=== PATIENT | male | born 1970 | race Caucasian/White ===

== ENCOUNTER 2016-07-15 20:55 | Emergency (ER) | payer BC ==
[2016-07-15 21:06] VITALS: RESP 16; TEMP 100
[2016-07-15] MEDS ORDERED: ASPIRIN 81 MG CHEW PO STA (21:07)
--- NOTE | 2016-07-15 21:20 | ED ---
Chest Pain HPI - General Chief Complaint: Chest Pain Stated Complaint: Chest Pain Time Seen by Provider: 07/15/16 21:01 Source: patient Mode of arrival: ambulatory Limitations: no limitations - History of Present Illness Initial Comments: This patient is a 46-year-old man who presents to be evaluated for a sensation of chest tightness. The patient states that things been going on for nearly 1 week, though it they are worse tonight. He indicates that the chest tightness is all across his chest and then he also feels it in his upper back. Patient states that he did see his "asthma doctor" at the end of last week and was told that his lungs seemed clear. The patient has also had a nonproductive cough associated. He has not had diaphoresis, nausea or vomiting, palpitations, lightheadedness or syncope. Patient states that the symptoms are currently moderate, constant, and he has not noted any worsening or relieving factors. MD Complaint: chest pain Onset/Timin -: week(s) Onset: during rest Pain Location: left chest, right chest Pain Radiation: back Severity: moderate Quality: tightness Consistency: constant Improves With: nothing Worsens With: nothing Other Symptoms: cough Treatments Prior to Arrival: none - Related Data Home Medications Medication Instructions Recorded Confirmed Albuterol Sulfate [Proair Hfa] 1 - 2 puff INHALATION RT-Q6H PRN 11/15/15 Budesonide-Formot 160-4.5 Mcg 2 puff INHALATION RT-BID 11/15/15 11/17/15 [Symbicort 160-4.5 Mcg Inhaler] Cholecalciferol [Vitamin D3] 2,000 unit PO DAILY 11/15/15 11/17/15 Diphenoxylate HCl/Atropine 1 tab PO QID PRN 11/15/15 11/17/15 [Lomotil] Fexofenadine HCl [Andreia Allergy] 180 mg PO DAILY PRN 11/15/15 11/17/15 Lansoprazole [Prevacid] 30 mg PO DAILY 11/15/15 11/17/15 Montelukast [Singulair] 10 mg PO HS 11/15/15 11/17/15 Dicyclomine [Bentyl] 20 mg PO QID PRN 11/17/15 11/17/15 Previous Rx's Medication Instructions Recorded Cephalexin [Keflex] 500 mg PO Q12HR 10 Days 11/17/15 Allergies Allergy/AdvReac Type Severity Reaction Status Date / Time Iodinated Contrast Media - Allergy Rash/Hives Verified 07/15/16 21:06 Oral and [Iodinated Contrast Media - IV Dye] meperidine HCl [From Demerol] Allergy Swelling Verified 07/15/16 21:06 propoxyphene napsylate Allergy Swelling Verified 07/15/16 21:06 [From Darvocet-N 100] Review of Systems ROS Statement: Those systems with pertinent positive or pertinent negative responses have been documented in the HPI. ROS Other: All systems not noted in ROS Statement are negative. Constitutional: Denies: fever, chills, weakness Respiratory: Reports: as per HPI, cough. Denies: dyspnea, wheezes, hemoptysis Cardiovascular: Reports: as per HPI, chest pain. Denies: palpitations, orthopnea, edema, syncope Gastrointestinal: Denies: abdominal pain, nausea, vomiting Genitourinary: Denies: dysuria, hematuria Musculoskeletal: Reports: as per HPI, back pain Skin: Denies: rash Neurological: Denies: headache, weakness, numbness EKG Findings - EKG Results: EKG: interpreted by OCTAVIA HAIR, sinus rhythm (With PVC. Rate approximate 77 bpm) , normal axis, normal QRS, normal ST/T Past Medical History Past Medical History: Asthma, Hypertension History of Any Multi-Drug Resistant Organisms: None Reported Past Surgical History: Hernia Repair Additional Past Surgical History / Comment(s): splenectomy Past Psychological History: No Psychological Hx Reported Smoking Status: Former smoker Past Alcohol Use History: Occasional Past Drug Use History: None Reported General Exam Limitations: no limitations General appearance: alert, in no apparent distress Head exam: Present: atraumatic, normocephalic Eye exam: Present: normal appearance. Absent: scleral icterus, conjunctival injection ENT exam: Present: normal oropharynx Neck exam: Present: normal inspection, full ROM Respiratory exam: Present: normal lung sounds bilaterally. Absent: respiratory distress, wheezes, rales, rhonchi, stridor Cardiovascular Exam: Present: regular rate, normal rhythm, normal heart sounds. Absent: systolic murmur, diastolic murmur, rubs, gallop GI/Abdominal exam: Present: soft. Absent: distended, tenderness, guarding, rebound, rigid, mass, pulsatile mass, hernia Extremities exam: Present: normal inspection, normal capillary refill. Absent: pedal edema, calf tenderness Back exam: Present: normal inspection. Absent: CVA tenderness (R), CVA tenderness (L) Neurological exam: Present: alert Skin exam: Present: warm, dry, intact, normal color. Absent: rash Course Vital Signs 07/15/16 07/15/16 07/15/16 21:00 22:02 22:49 Temperature 100.0 F H Pulse Rate 74 78 69 Respiratory 16 16 Rate Blood Pressure 157/90 137/78 O2 Sat by Pulse 94 L 96 Oximetry 07/15/16 22:58 Temperature Pulse Rate 75 Respiratory Rate Blood Pressure O2 Sat by Pulse Oximetry Disposition Clinical Impression: Chest pain Disposition: HOME SELF-CARE Condition: Fair Instructions: Chest Pain (ED) Additional Instructions: As we discussed, follow-up with the [facility] or with her primary physician to have a stress test arranged in the very near future. Should you have any of the symptoms we discussed or if there is worsening in anyway return here immediately and we can arrange to have this done as an inpatient. Referrals: Juliano Canales DO [Primary Care Provider] - 1-2 days Rajni Duarte MD [STAFF PHYSICIAN] - 1-2 days
[2016-07-15 21:38] LABS: Basophils # (A) 0.1 k/uL (0-0.2); Basophils % (A) 1 %; CH 32.2; CHCM 33.1; Eosinophils # (A) 0.3 k/uL (0-0.7); Eosinophils % (A) 2 %; HCT 47.9 % (39.0-53.0); HDW 2.42; HGB 16.1 gm/dL (13.0-17.5); Luc # (Auto) 0.32; Luc % (Auto) 2; Lymphocytes # (A) 3.5 k/uL (1.0-4.8); Lymphocytes % (A) 25 %; MCHC 33.7 g/dL (31.0-37.0); MCV 97.9 fL (80.0-100.0); Mean Platelet Volume 7.3; Monocytes # (A) 0.8 k/uL (0-1.0); Monocytes % (A) 6 %; Neutrophils # (A) 8.7 k/uL (1.3-7.7); Neutrophils % (A) 63 %; RDW 13.2 % (11.5-15.5); WBC 13.8 k/uL (3.8-10.6); WBC (Perox) 13.13
[2016-07-15 21:54] LABS: ALT 38 U/L (21-72); AST 26 U/L (17-59); Alkaline Phosphatase 69 U/L (38-126); Amylase 54 U/L (30-110); Anion Gap 12 mmol/L; Blood Urea Nitrogen 21 mg/dL (9-20); Calcium 9.5 mg/dL (8.4-10.2); Carbon Dioxide 28 mmol/L (22-30); Chloride 101 mmol/L (98-107); Glucose 99 mg/dL (74-99); Non-African American GFR(MDRD) >60 (>60 ml/min/1.73 sqM); Potassium 4.3 mmol/L (3.5-5.1); Sodium 141 mmol/L (137-145); Total Bilirubin 0.4 mg/dL (0.2-1.3); Total Protein 7.2 g/dL (6.3-8.2)
[2016-07-15 21:55] LABS: Creatine Kinase 84 U/L (55-170)
[2016-07-15 21:56] LABS: Prothrombin Time 9.8 sec (9.0-12.0)
--- NOTE | 2016-07-15 21:59 | XR ---
EXAMINATION TYPE: XR chest 1V portable DATE OF EXAM: 07/15/2016 9:31 PM COMPARISON: 07/12/2016 INDICATION: Chest pain history of asthma TECHNIQUE: Single frontal view of the chest is obtained. FINDINGS: The heart size is normal. The pulmonary vasculature is normal. The lungs are clear. IMPRESSION: 1. No acute pulmonary process.
[2016-07-15 22:06] LABS: Creatine Kinase MB 0.7 ng/mL (0.0-2.4); Troponin I <0.012 ng/mL (0.000-0.034)
[2016-07-15] MEDS ORDERED: ALBUTEROL NEBULIZED 2.5 MG/3 ML INHALATION STA (22:30)
[2016-07-15 23:15] VITALS: BP 155/91; PULSE 63
== END 2016-07-15 23:14 | disposition home or self-care (01) ==
LOC: EC 20:55
DX: R07.89 Other chest pain (principal); R05 Cough; J45.909 Unspecified asthma, uncomplicated; I10 Essential (primary) hypertension; Z87.891 Personal history of nicotine dependence; Z79.51 Long term (current) use of inhaled steroids; Z79.899 Other long term (current) drug therapy; Z91.041 Radiographic dye allergy status; Z88.5 Allergy status to narcotic agent
CPT/HCPCS: 36415; 71010; 80053; 82150; 82550; 82553; 83690; 83735; 84484; 85025; 85379; 85610; 85730; 93005; 94640; 99285

== ENCOUNTER → 2019-06-01 | Day surgery (SDC) | payer BC ==
[2019-05-29 09:49] VITALS: BMI 33.5
[~2019-06-01] MED LIST: LACTATED RINGERS 1,000 ML IV SCH; LIDOCAINE 1% 20 ML VIAL (10MG/ML) FOR IV START INTRADERMA PRN; PROPOFOL 10 MG/ML 20 ML VIAL IV ONE
[2019-06-01 08:32] VITALS: RESP 16; TEMP 98.1
--- NOTE | 2019-06-01 09:11 | P.PCN ---
Date of Procedure: 06/01/19 Description of Procedure: BRIEF HISTORY: Patient is a 48-year-old male who presents for outpatient colonoscopy for family history of colon cancer. He reports colon cancer in both his father and maternal grandmother. Denies any change in bowel habits, blood per rectum or abdominal pain. PROCEDURE PERFORMED: Colonoscopy with polypectomy. PREOPERATIVE DIAGNOSIS: Family history of colon cancer, last colonoscopy 2011. ESTIMATED BLOOD LOSS: Minimal. IV sedation per Anesthesia. PROCEDURE: After informed consent was obtained, the patient, was brought into the endoscopy unit. IV sedation was administered by Anesthesia under continuous monitoring. Digital rectal examination was normal. Initially the Olympus CF-190 flexible video colonoscope was then inserted in the rectum, gradually advanced into the cecum without any difficulty. Careful examination was performed as the scope was gradually being withdrawn. Ileocecal valve and the appendiceal orifice were visualized and appeared normal. Prep was excellent. Mucosa of the cecum, ascending colon, transverse colon, descending colon, sigmoid colon, and rectum appeared normal, with a few scattered diverticula noted in the sigmoid. 2 diminutive polyps measuring 2 mm and 1 mm in size removed from the rectum with cold forcep polypectomy. Retroflexion was performed in the rectum and no lesions were seen. The patient tolerated the procedure well. IMPRESSION: 2 diminutive rectal polyps removed with cold forcep polypectomy. Mild sigmoid diverticulosis. RECOMMENDATIONS: Findings of this examination were discussed with the patient and his . Okay to resume diet. Okay to resume medications. Await pathology from polypectomy. Would recommend repeat colonoscopy in 5 years with family history of colon cancer.
[2019-06-01 09:31] VITALS: BP 143/94; PULSE 77
== END ==
LOC: ORWHC2ENDO 08:09
PROVIDERS: ATTEND Internal Medicine
DX: Z12.11 Encounter for screening for malignant neoplasm of colon (principal); D12.8 Benign neoplasm of rectum; K62.1 Rectal polyp; K57.30 Diverticulosis of large intestine without perforation or abscess without bleeding; Z80.0 Family history of malignant neoplasm of digestive organs; I10 Essential (primary) hypertension; J45.909 Unspecified asthma, uncomplicated; K21.9 Gastro-esophageal reflux disease without esophagitis; Z88.6 Allergy status to analgesic agent; Z79.51 Long term (current) use of inhaled steroids; Z79.899 Other long term (current) drug therapy; Z88.5 Allergy status to narcotic agent; Z91.041 Radiographic dye allergy status
CPT/HCPCS: 88305; 45380; J2704

== ENCOUNTER 2019-12-15 17:34 | Emergency (ER) | payer BC ==
[2019-12-15] MEDS ORDERED: diphenhydrAMINE 50 MG/ML 1 ML VIAL IVP STA (18:00)
[2019-12-15] MEDS ORDERED: methylPREDNISolone SOD SUCCI 125 MG/2 ML VIAL IV STA (18:00)
[2019-12-15] MEDS ORDERED: FAMOTIDINE 20 MG/2 ML VIAL IV STA (18:00)
[2019-12-15] MEDS: ASPIRIN 81 MG PO STA ×2 (18:06→18:07)
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
[2019-12-15 18:14] LABS: Basophils # (A) 0.2 k/uL (0-0.2); Basophils % (A) 1 %; Eosinophils # (A) 0.5 k/uL (0-0.7); Eosinophils % (A) 3 %; HGB 17.3 gm/dL (13.0-17.5); Lymphocytes # (A) 3.4 k/uL (1.0-4.8); Lymphocytes % (A) 22 %; MCH 32.4 pg (25.0-35.0); MCHC 33.3 g/dL (31.0-37.0); MCV 97.4 fL (80.0-100.0); Monocytes # (A) 1.1 k/uL (0-1.0); Monocytes % (A) 7 %; Neutrophils # (A) 9.9 k/uL (1.3-7.7); Neutrophils % (A) 65 %; Platelet Count 489 k/uL (150-450); RBC 5.34 m/uL (4.30-5.90); RDW 13.2 % (11.5-15.5); WBC 15.3 k/uL (3.8-10.6)
[2019-12-15 18:24] LABS: ALT 45 U/L (4-49); AST 44 U/L (17-59); African American GFR (CKD) >90 (>60 ml/min/1.73 sqM); Albumin 4.5 g/dL (3.5-5.0); Alkaline Phosphatase 107 U/L (38-126); Anion Gap 9 mmol/L; Blood Urea Nitrogen 10 mg/dL (9-20); Calcium 9.5 mg/dL (8.4-10.2); Carbon Dioxide 27 mmol/L (22-30); Chloride 102 mmol/L (98-107); Glucose 95 mg/dL (74-99); Magnesium 2.1 mg/dL (1.6-2.3); Non-African American GFR(CKD) >90 (>60 ml/min/1.73 sqM); Potassium 4.4 mmol/L (3.5-5.1); Sodium 138 mmol/L (137-145); Total Bilirubin 0.5 mg/dL (0.2-1.3); Total Protein 7.9 g/dL (6.3-8.2)
[2019-12-15 18:27] LABS: D-Dimer 0.35 mg/L FEU (<0.60); INR 0.9 (<1.2); Partial Thromboplastin Time 24.7 sec (22.0-30.0); Prothrombin Time 9.5 sec (9.0-12.0)
--- NOTE | 2019-12-15 18:41 | XR ---
EXAMINATION TYPE: XR chest 2V DATE OF EXAM: 12/15/2019 COMPARISON: 07/15/2016 INDICATION: Chest pain TECHNIQUE: Frontal and lateral views of the chest are obtained. FINDINGS: The heart size is normal. The pulmonary vasculature is normal. The lungs are clear. IMPRESSION: 1. No acute pulmonary process.
[2019-12-15] MEDS ORDERED: LORazepam 2 MG/ML INJ IV STA (18:42)
[2019-12-15] MEDS ORDERED: hydrALAZINE HCL 20 MG/ML 1 ML VIAL IVP STA (18:49)
[2019-12-15] MEDS ORDERED: MORPHINE SULFATE 4 MG/ML SYRINGE IVP STA (19:19)
--- NOTE | 2019-12-15 19:39 | CT ---
EXAMINATION TYPE: CT angio thor/abd pel aorta DATE OF EXAM: 12/15/2019 HISTORY: Pain radiating to back COMPARISON: CT abdomen pelvis 11/15/2015 CT DLP: 1585 mGycm. Automated Exposure Control for Dose Reduction was Utilized. TECHNIQUE: CTA scan of the aorta is performed without and with IV Contrast, patient injected with 10 0 mL of Isovue 370, axial images are obtained, coronal and sagittal reformatted images are reviewed. Three-D reconstructed images are created on an independent workstation and reviewed. Source images a re reviewed. FINDINGS: There is a three-vessel arch. The ascending thoracic aorta appears unremarkable. The ascending thorac ic aorta at the level the main pulmonary artery is 3.2 cm. The main pulmonary artery at the bifurcati on is 2.4 cm. Aortic arch is unremarkable. Descending thoracic aorta is normal. Abdominal aorta: 2 renal arteries are present. The superior mesenteric artery and celiac axis appear normal. Aortic bifurcation is normal. Common iliac, internal and external iliac vessels are patent. C ommon femoral arteries are patent. Three-D reconstructed images are reviewed on the computer Soft tissues: Urinary bladder is unremarkable. The prostate is somewhat prominent. No suspicious dila nish loops of bowel are evident. The appendix is normal as visualized. Inferior vena cava is normal. L iver spleen pancreas gallbladder adrenal glands and kidneys are normal. Lung windows are clear. IMPRESSION: 1. No suspicious aortic dissection or aneurysmal dilatation. 2. No suspicious abnormality to account for back pain.
[2019-12-15 20:36] VITALS: BP 144/99; PULSE 82; RESP 17; TEMP 98.6
== END 2019-12-15 20:35 | disposition home or self-care (01) ==
LOC: EC 17:34
DX: R07.89 Other chest pain (principal); J45.909 Unspecified asthma, uncomplicated; K21.9 Gastro-esophageal reflux disease without esophagitis; I10 Essential (primary) hypertension; Z79.899 Other long term (current) drug therapy; Z79.51 Long term (current) use of inhaled steroids; Z87.891 Personal history of nicotine dependence; Z91.041 Radiographic dye allergy status; Z88.5 Allergy status to narcotic agent; Z88.8 Allergy status to other drugs, medicaments and biological substances; Z90.81 Acquired absence of spleen
CPT/HCPCS: 36415; 93005; 85379; 83880; 80053; 83735; 84484; 85025; 85610; 85730; 71046; 71275; 74174; 99285; 96374; 96375 ×2; J1200; J2930; Q9967

== ENCOUNTER 2020-02-07 18:12 | Emergency (ER) | payer BC ==
--- NOTE | 2020-02-07 18:29 | ED ---
General Adult HPI - General Chief complaint: Upper Respiratory Infection Stated complaint: fever/cough/congestion Time Seen by Provider: 02/07/20 18:23 Source: patient Mode of arrival: ambulatory Limitations: no limitations - History of Present Illness Initial comments: 49-year-old male presenting to emergency Department with a chief complaint of sinus congestion, cough and fever.. Patient states he has been having upper respiratory like symptoms including sinus congestion and a sore throat for the past 2-3 days. States today's developed a fever and was concerned for Covid because his coworker tested positive today. 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 He denies any chest pain or shortness of breath at this time. Not a smoker but does have history of asthma. History of hypertension but no hypercholesterolemia. Denies taking medication to alleviate the symptoms. No nausea vomiting diarrhea. No abdominal back pain. No loss of taste or smell. States all his vaccinations are up-to-date. - Related Data Home Medications Medication Instructions Recorded Confirmed Budesonide-Formot 160-4.5 Mcg 2 puff INHALATION RT-BID 11/15/15 12/15/19 [Symbicort 160-4.5 Mcg Inhaler] Cholecalciferol [Vitamin D3] 5,000 unit PO DAILY 11/15/15 12/15/19 Fexofenadine HCl [Andreia Allergy] 180 mg PO DAILY PRN 11/15/15 12/15/19 Lansoprazole [Prevacid] 30 mg PO DAILY PRN 11/15/15 12/15/19 Losartan [Cozaar] 50 mg PO DAILY@1800 05/29/19 12/15/19 amLODIPine BESYLATE [Norvasc] 2.5 mg PO DAILY@1800 05/29/19 12/15/19 Albuterol Sulfate [Ventolin HFA] 1 - 2 puff INHALATION RT-Q6H PRN 12/15/19 12/15/19 Previous Rx's Medication Instructions Recorded Amoxicillin/Potassium Clav 1 tab PO Q12HR #20 tab 02/07/20 [Augmentin 875-125 Tablet] Azithromycin [Zithromax Z-pack (6 0 mg PO DIRECTED #1 pack 02/07/20 tabs)] Allergies Allergy/AdvReac Type Severity Reaction Status Date / Time Iodinated Contrast Media Allergy Rash/Hives Verified 02/07/20 18:19 [Iodinated Contrast Media - IV Dye] meperidine HCl [From Demerol] Allergy Swelling Verified 02/07/20 18:19 propoxyphene napsylate Allergy Swelling Verified 02/07/20 18:19 [From Darvocet-N 100] Review of Systems ROS Statement: Those systems with pertinent positive or pertinent negative responses have been documented in the HPI. ROS Other: All systems not noted in ROS Statement are negative. Past Medical History Past Medical History: Asthma, GERD/Reflux, Hypertension Additional Past Medical History / Comment(s): FAMILY HX COLON CANCER., ECZEMA History of Any Multi-Drug Resistant Organisms: None Reported Past Surgical History: Hernia Repair Additional Past Surgical History / Comment(s): spleenectomy (due to swelling after car fell on him), incisional hernia repair. colonoscopy, EGD. Past Anesthesia/Blood Transfusion Reactions: No Reported Reaction, Motion Sickness Past Psychological History: No Psychological Hx Reported Smoking Status: Former smoker Past Alcohol Use History: Daily Past Drug Use History: None Reported - Past Family History Father Family Medical History: Cancer Additional Family Medical History / Comment(s): colon cancer General Exam Limitations: no limitations General appearance: alert, in no apparent distress Head exam: Present: atraumatic, normocephalic, normal inspection Eye exam: Present: normal appearance, PERRL, EOMI Pupils: Present: normal accommodation ENT exam: Present: normal exam, normal oropharynx, mucous membranes moist, TM's normal bilaterally, normal external ear exam Neck exam: Present: normal inspection, full ROM. Absent: tenderness, meningismus, lymphadenopathy, thyromegaly Respiratory exam: Present: normal lung sounds bilaterally. Absent: respiratory distress, wheezes, rales, rhonchi, stridor, chest wall tenderness, accessory muscle use, decreased breath sounds, prolonged expiratory Cardiovascular Exam: Present: normal rhythm, tachycardia, normal heart sounds GI/Abdominal exam: Present: soft. Absent: distended, tenderness, guarding, rebound Extremities exam: Present: normal inspection, full ROM, normal capillary refill. Absent: tenderness, pedal edema, joint swelling, calf tenderness Back exam: Present: normal inspection, full ROM. Absent: tenderness, CVA tenderness (R), CVA tenderness (L) Neurological exam: Present: alert, oriented X3, normal gait Psychiatric exam: Present: normal affect, normal mood Skin exam: Present: warm, dry, intact, normal color Course Vital Signs 02/07/20 02/07/20 18:14 20:34 Temperature 100.5 F H 100.2 F H Pulse Rate 114 H 95 Respiratory 18 17 Rate Blood Pressure 171/108 139/99 O2 Sat by Pulse 96 97 Oximetry EKG Findings - EKG Comments: EKG Findings:: Sinus rhythm with a PVC. Ventricular rate 92, KS 124, QRS 96, QTC 435. Medical Decision Making - Medical Decision Making Patient is a 49-year-old male with history of asthma presenting to emergency Department with chief complaint of sinus congestion, cough and fever. Physical examination patient is not in any respiratory distress. He was febrile in the ED and was given antipyretics. CBC reveals mild leukocytosis with hemoconcentration. Chest x-ray is unremarkable. CMP is also unremarkable. Negative for influenza. Patient does have a splenectomy and has all of his vaccinations up-to-date. He reports feeling well and is oxygenating over 95 on room air. EKG revealed sinus rhythm with a PAC. I will start the patient on Augmentin. He will be discharged with Augmentin and azithromycin. On reevaluation, vitals improved. Strict return parameters were thoroughly discussed with patient was understanding and agreeable. I advised him to keep a close eye on his breathing parents and fever. Advised him to take Tylenol only for the fever. I advised him about the importance of returning immediately if the symptoms worsen. He was also advised to follow with his primary care physician. Case discussed with physician. - Lab Data Result diagrams: 02/07/20 19:05 02/07/20 19:05 Lab Results 02/07/20 02/07/20 02/07/20 Range/Units 19:05 19:05 19:05 WBC 12.1 H (3.8-10.6) k/uL RBC 5.51 (4.30-5.90) m/uL Hgb 18.2 H (13.0-17.5) gm/dL Hct 55.3 H (39.0-53.0) % MCV 100.4 H (80.0-100.0) fL MCH 33.1 (25.0-35.0) pg MCHC 32.9 (31.0-37.0) g/dL RDW 13.1 (11.5-15.5) % Plt Count 498 H (150-450) k/uL Neutrophils % 64 % Lymphocytes % 20 % Monocytes % 6 % Eosinophils % 6 % Basophils % 2 % Neutrophils # 7.8 H (1.3-7.7) k/uL Lymphocytes # 2.4 (1.0-4.8) k/uL Monocytes # 0.8 (0-1.0) k/uL Eosinophils # 0.7 (0-0.7) k/uL Basophils # 0.2 (0-0.2) k/uL PT 9.7 (9.0-12.0) sec INR 0.9 (<1.2) APTT 24.4 (22.0-30.0) sec D-Dimer 0.31 (<0.60) mg/L FEU Sodium 138 (137-145) mmol/L Potassium 5.0 (3.5-5.1) mmol/L Chloride 104 (98-107) mmol/L Carbon Dioxide 28 (22-30) mmol/L Anion Gap 6 mmol/L BUN 10 (9-20) mg/dL Creatinine 1.04 (0.66-1.25) mg/dL Est GFR (CKD-EPI)AfAm >90 (>60 ml/min/1.73 sqM) Est GFR (CKD-EPI)NonAf 85 (>60 ml/min/1.73 sqM) Glucose 92 (74-99) mg/dL Plasma Lactic Acid Cheng (0.7-2.0) mmol/L Calcium 9.3 (8.4-10.2) mg/dL Magnesium 2.2 (1.6-2.3) mg/dL Total Bilirubin 0.5 (0.2-1.3) mg/dL AST 44 (17-59) U/L ALT 54 H (4-49) U/L Alkaline Phosphatase 92 (38-126) U/L Troponin I (0.000-0.034) ng/mL Total Protein 8.0 (6.3-8.2) g/dL Albumin 4.5 (3.5-5.0) g/dL Influenza Type A RNA (Not Detectd) Influenza Type B (PCR) (Not Detectd) 02/07/20 02/07/20 02/07/20 Range/Units 19:05 19:05 19:05 WBC (3.8-10.6) k/uL RBC (4.30-5.90) m/uL Hgb (13.0-17.5) gm/dL Hct (39.0-53.0) % MCV (80.0-100.0) fL MCH (25.0-35.0) pg MCHC (31.0-37.0) g/dL RDW (11.5-15.5) % Plt Count (150-450) k/uL Neutrophils % % Lymphocytes % % Monocytes % % Eosinophils % % Basophils % % Neutrophils # (1.3-7.7) k/uL Lymphocytes # (1.0-4.8) k/uL Monocytes # (0-1.0) k/uL Eosinophils # (0-0.7) k/uL Basophils # (0-0.2) k/uL PT (9.0-12.0) sec INR (<1.2) APTT (22.0-30.0) sec D-Dimer (<0.60) mg/L FEU Sodium (137-145) mmol/L Potassium (3.5-5.1) mmol/L Chloride (98-107) mmol/L Carbon Dioxide (22-30) mmol/L Anion Gap mmol/L BUN (9-20) mg/dL Creatinine (0.66-1.25) mg/dL Est GFR (CKD-EPI)AfAm (>60 ml/min/1.73 sqM) Est GFR (CKD-EPI)NonAf (>60 ml/min/1.73 sqM) Glucose (74-99) mg/dL Plasma Lactic Acid Cheng 1.4 (0.7-2.0) mmol/L Calcium (8.4-10.2) mg/dL Magnesium (1.6-2.3) mg/dL Total Bilirubin (0.2-1.3) mg/dL AST (17-59) U/L ALT (4-49) U/L Alkaline Phosphatase (38-126) U/L Troponin I <0.012 (0.000-0.034) ng/mL Total Protein (6.3-8.2) g/dL Albumin (3.5-5.0) g/dL Influenza Type A RNA Not Detected (Not Detectd) Influenza Type B (PCR) Not Detected (Not Detectd) Disposition Clinical Impression: Sinus congestion, Sore throat, Nonproductive cough, Fever, Respiratory infection Disposition: HOME SELF-CARE Condition: Stable Instructions (If sedation given, give patient instructions): Upper Respiratory Infection (ED) Additional Instructions: Self isolate until you receive results of Covid testing. Follow with her primary care physician. Return to emergency department if symptoms worsen. Take prescribed medication as directed. Prescriptions: Amoxicillin/Potassium Clav [Augmentin 875-125 Tablet] 1 tab PO Q12HR #20 tab Azithromycin [Zithromax Z-pack (6 tabs)] 0 mg PO DIRECTED #1 pack Is patient prescribed a controlled substance at d/c from ED?: No Referrals: Juliano Canales DO [Primary Care Provider] - 1-2 days Time of Disposition: 20:58
[2020-02-07] MEDS ORDERED: ACETAMINOPHEN TAB 500 MG TAB PO STA (18:31)
[2020-02-07 19:13] LABS: Basophils # (A) 0.2 k/uL (0-0.2); Basophils % (A) 2 %; Eosinophils # (A) 0.7 k/uL (0-0.7); Eosinophils % (A) 6 %; HGB 18.2 gm/dL (13.0-17.5); Lymphocytes # (A) 2.4 k/uL (1.0-4.8); Lymphocytes % (A) 20 %; MCH 33.1 pg (25.0-35.0); MCHC 32.9 g/dL (31.0-37.0); MCV 100.4 fL (80.0-100.0); Mean Platelet Volume 7.2; Monocytes # (A) 0.8 k/uL (0-1.0); Monocytes % (A) 6 %; Neutrophils # (A) 7.8 k/uL (1.3-7.7); Neutrophils % (A) 64 %; Platelet Count 498 k/uL (150-450); RBC 5.51 m/uL (4.30-5.90); RDW 13.1 % (11.5-15.5); WBC 12.1 k/uL (3.8-10.6)
[2020-02-07 19:18] LABS: HCT 55.3 % (39.0-53.0)
--- NOTE | 2020-02-07 19:21 | XR ---
EXAMINATION TYPE: XR chest 2V DATE OF EXAM: 02/07/2020 COMPARISON: Chest x-ray and CTA aorta December 15, 2019. HISTORY: Fever, cough, and congestion. Hx of Covid exposure. TECHNIQUE: Frontal and lateral views of the chest are obtained. FINDINGS: There is no focal air space opacity, pleural effusion, or pneumothorax seen. The cardiac silhouette size is within normal limits. The osseous structures are intact. Overlying EKG leads are redemonstrated. IMPRESSION: No acute pulmonary process. No significant change from prior studies.
[2020-02-07 19:24] LABS: ALT 54 U/L (4-49); AST 44 U/L (17-59); African American GFR (CKD) >90 (>60 ml/min/1.73 sqM); Albumin 4.5 g/dL (3.5-5.0); Alkaline Phosphatase 92 U/L (38-126); Anion Gap 6 mmol/L; Blood Urea Nitrogen 10 mg/dL (9-20); Calcium 9.3 mg/dL (8.4-10.2); Carbon Dioxide 28 mmol/L (22-30); Chloride 104 mmol/L (98-107); Glucose 92 mg/dL (74-99); Magnesium 2.2 mg/dL (1.6-2.3); Non-African American GFR(CKD) 85 (>60 ml/min/1.73 sqM); Sodium 138 mmol/L (137-145); Total Bilirubin 0.5 mg/dL (0.2-1.3)
[2020-02-07 19:31] LABS: D-Dimer 0.31 mg/L FEU (<0.60); INR 0.9 (<1.2); Partial Thromboplastin Time 24.4 sec (22.0-30.0); Prothrombin Time 9.7 sec (9.0-12.0)
[2020-02-07] MEDS ORDERED: AMOXIC-POT CLAV 875-125MG 1 EACH TAB PO STA (20:35)
[2020-02-07 21:48] VITALS: BP 120/74; PULSE 70; RESP 18; TEMP 100.1
== END 2020-02-07 21:20 | disposition home or self-care (01) ==
LOC: EC 18:12
DX: J98.8 Other specified respiratory disorders (principal); J02.9 Acute pharyngitis, unspecified; D72.829 Elevated white blood cell count, unspecified; J45.909 Unspecified asthma, uncomplicated; I10 Essential (primary) hypertension; Z79.51 Long term (current) use of inhaled steroids; Z79.899 Other long term (current) drug therapy; Z91.041 Radiographic dye allergy status; Z88.5 Allergy status to narcotic agent; Z88.8 Allergy status to other drugs, medicaments and biological substances; Z90.81 Acquired absence of spleen; Z87.891 Personal history of nicotine dependence
CPT/HCPCS: 36415; 93005; 85379; 80053; 83605; 83735; 84484; 85025; 85610; 85730; 87502; 71046; 99284; U0003